=== PATIENT | male | born 1975 | race Caucasian/White ===

== ENCOUNTER 2017-08-05 12:22 | Emergency (ER) | payer BC ==
[~2017-08-05] VITALS: Ht 188 cm; Wt 100.0 kg
[~2017-08-05 12:22] MED LIST: CLARITIN 1010 MG/TAB PO; DEXILANT30 MG PO; FLEXERIL 1010 MG/TAB PO; NORCO 325 MG-51 TAB PO; PERCOCET 325 MG1 TA2 PO; PREDNISONE10 MG PO
[2017-08-05 12:28] VITALS: TEMP 98.5
[2017-08-05] MEDS ORDERED: SYNTHROID0.05 MG/TA PO (12:42)
[2017-08-05 13:12] LABS: BASO % 1.2 % (0.0-2.0); EOS # 0.2 (0.0-0.7); EOS % 5.4 % (0-4.0); GRAN # 1.5 (1.4-6.5); GRAN % 45.6 % (42.2-75.2); HEMATOCRIT 39.2 % (42.0-52.0); HEMOGLOBIN 13.7 g/dl (13.5-18.0); LYMPH % 29.9 % (20.0-51.0); MEAN CELL VOLUME 86 fl (80.0-100.0); MEAN CORPUSCULAR HEMOGLOBIN 30 pg (27.0-31.0); MEAN CORPUSCULAR HGB CONC 35 g/dl (33.0-37.0); MEAN PLATELET VOLUME 9.4 fl (7.4-10.4); MONO # 0.6 (0.1-0.6); MONO % 17.3 % (1.7-9.3); PLATELET COUNT 225 K/mm3 (130-400); RED BLOOD COUNT 4.54 M/mm3 (4.20-5.60)
[2017-08-05 13:20] LABS: ALANINE AMINOTRANSFERASE 39 U/L (21-72); ALBUMIN 4.1 gm/dL (3.5-5.0); ALKALINE PHOSPHATASE 63 U/L (50-136); ANION GAP 11 mmol/L (7-16); AST,SGOT 41 U/L (15-37); BILIRUBIN,TOTAL 0.7 mg/dL (0.0-1.0); BLOOD UREA NITROGEN 12 mg/dL (9-20); CALCIUM 9.2 mg/dL (8.4-10.2); CARBON DIOXIDE 27 mmol/L (22-30); CHLORIDE 104 mmol/L (98-107); CREATININE, serum 1.03 mg/dL (0.66-1.25); GLUCOSE 97 mg/dL (74-106); MAGNESIUM 1.7 mg/dL (1.6-2.3); PHOSPHOROUS 3.5 mg/dL (2.5-4.5); POTASSIUM 4.1 mmol/L (3.4-5.0); SODIUM 142 mmol/L (137-145); TOTAL PROTEIN 7.8 gm/dL (6.4-8.2)
[2017-08-05 13:32] LABS: TROPONIN-I < 0.012 ng/mL (0.000-0.034)
[2017-08-05 14:39] LABS: THYROID STIMULATING HORMONE 2.6 uIU/mL (0.465-4.680)
[2017-08-05 15:46] VITALS: BP 122/88; PULSE 64
== END 2017-08-05 15:48 | disposition home or self-care (01) ==
LOC: COL.ER 12:22
PROVIDERS: Emergency Medicine
DX: R51 Headache (principal); R20.2 Paresthesia of skin; E03.9 Hypothyroidism, unspecified